=== PATIENT | male | born 1990 | race Two or more races ===

== ENCOUNTER 2017-05-02 20:46 | Emergency (ER) | payer OTHER ==
[2017-05-02 21:00] VITALS: BP 112/72
[2017-05-02 21:21] LABS: APPEARANCE,URINE CLOUDY; BILIRUBIN,URINE NEGATIVE (NEGATIVE); GLUCOSE, URINE NEGATIVE (NEGATIVE); KETONES,URINE NEGATIVE (NEGATIVE); LEUKOCYTE ESTERASE,URINE MODERATE (NEGATIVE); NITRITE,URINE NEGATIVE (NEGATIVE); PROTEIN,URINE 100 mg/dL (NEGATIVE); URINE SPECIFIC GRAVITY 1.018; UROBILINOGEN,URINE NEGATIVE mg/dL (<2.0)
[2017-05-02] MEDS ORDERED: CEFTRIAXONE INJ 1000 MG VIAL IM ONE (22:34)
[2017-05-02] MEDS ORDERED: LIDOCAINE 1% INJ-PF (10 MG/ML) 30 ML SDV INJ ONE (22:34)
[2017-05-02] MEDS ORDERED: AZITHROMYCIN 250 MG TABLET PO ONE (22:34)
[2017-05-02] MEDS ORDERED: HYDROCODONE/ACETAMINOPHEN 5-325 MG 6 TAB/DSPK PO PRN (22:37)
--- NOTE | 2017-05-02 22:38 | ER Document Report ---
ED GI/ - General Chief Complaint: Urinary Problem Stated Complaint: FEVER,BLOOD IN URINE Time Seen by Provider: 05/02/17 22:34 Notes: patient is a 26-year-old male who comes emergency department for chief complaint of hematuria, dysuria, urinary frequency, and also pain radiating around towards his right flank. He states earlier today before arrival he urinated and thinks he peed something out which he is not sure about. He states he actually feels a lot better now but he is still having frequency of urination and some discomfort with urination. He states he felt chills like a fever earlier. 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 He denies penis or scrotal pain, denies discharge, states he is sexually active with his . Denies personally history of kidney stones but they run in the family. TRAVEL OUTSIDE OF THE [place] IN LAST 30 DAYS: No Past Medical History - General Information source: Patient - Social History Smoking Status: Never Smoker Frequency of alcohol use: Occasional Drug Abuse: None Lives with: Spouse/Significant other Family History: Reviewed & Not Pertinent Patient has suicidal ideation: No Patient has homicidal ideation: No - Medical History Medical History: Negative Renal/ Medical History: Denies: Hx Peritoneal Dialysis Surgical Hx: Negative - Immunizations Immunizations up to date: Yes Hx Diphtheria, Pertussis, Tetanus Vaccination: Yes Review of Systems - Review of Systems Constitutional: No symptoms reported EENT: No symptoms reported Cardiovascular: No symptoms reported Respiratory: No symptoms reported Gastrointestinal: See HPI Genitourinary: See HPI Male Genitourinary: See HPI Musculoskeletal: No symptoms reported Skin: No symptoms reported Hematologic/Lymphatic: No symptoms reported Neurological/Psychological: No symptoms reported Physical Exam - Vital signs Vitals: Temp Pulse Resp BP Pulse Ox 99.5 F 75 16 112/72 100 05/02/17 20:57 05/02/17 20:57 05/02/17 20:57 05/02/17 20:57 05/02/17 20:57 Interpretation: Normal - General General appearance: Appears well, Alert In distress: None - HEENT Head: Normocephalic, Atraumatic Eyes: Normal Pupils: PERRL - Respiratory Respiratory status: No respiratory distress Chest status: Nontender Breath sounds: Normal Chest palpation: Normal - Cardiovascular Rhythm: Regular Heart sounds: Normal auscultation Murmur: No - Abdominal Inspection: Normal Distension: No distension Bowel sounds: Normal Tenderness: Nontender. No: Tender, Guarding - Back Back: Normal, Nontender. No: Tender, CVA tenderness - Extremities General upper extremity: Normal inspection, Nontender, Normal color, Normal ROM , Normal temperature General lower extremity: Normal inspection, Nontender, Normal color, Normal ROM , Normal temperature, Normal weight bearing. No: Amberly's sign - Neurological Neuro grossly intact: Yes Cognition: Normal Orientation: AAOx4 Sanborn Coma Scale Eye Opening: Spontaneous Emily Coma Scale Verbal: Oriented [place] Coma Scale Motor: Obeys Commands Sanborn Coma Scale Total: 15 Speech: Normal Motor strength normal: LUE, RUE, LLE, RLE Sensory: Normal - Psychological Associated symptoms: Normal affect, Normal mood - Skin Skin Temperature: Warm Skin Moisture: Dry Skin Color: Normal Course - Re-evaluation Re-evalutation: Patient is calm, well-appearing, sitting with no signs of distress. No tachycardia, fever, or abnormal vital signs. Patient's abdomen is completely benign, no CVA tenderness. By report patient sounds like he actually passed a kidney stone. Denies penile discharge. Patient states his only current symptoms of frequency and discomfort with urination. Urinalysis shows white blood cells and red blood cells. Patient will be treated with antibiotics, given a shot of Rocephin, also covered with azithromycin, will be started on Keflex. I did discuss performing a CAT scan to be sure that he does have an infected stone, patient declines, patient does not present as if he is currently passing a stone or has any obstructive pathology. I discussed return precautions including fever or any other concerning symptoms, patient states understanding and agreement - Vital Signs Vital signs: Temp Pulse Resp BP Pulse Ox 99.5 F 75 16 112/72 100 05/02/17 20:57 05/02/17 20:57 05/02/17 20:57 05/02/17 20:57 05/02/17 20:57 - Laboratory Laboratory results interpreted by me: 05/02/17 20:55 Urine Protein 100 H Urine Blood LARGE H Ur Leukocyte Esterase MODERATE H Discharge - Discharge Clinical Impression: Hematuria, Dysuria Condition: Stable Disposition: HOME, SELF-CARE Additional Instructions: Your symptoms, workup, and exam are most consistent with a kidney stone which you have now urinated out with a secondary infection. You have begun treatment, please complete treatment at home with the prescribed antibiotic. You have been given hydrocodone tonight. Please return immediately if you worsen in any way including returned pain, spiking fever, vomiting, or any other concerning symptoms. Prescriptions: Cephalexin Monohydrate [Keflex 500 mg Capsule] 500 mg PO BID #14 capsule
== END 2017-05-02 22:45 | disposition home or self-care (01) ==
LOC: ER 20:46
DX: R31.9 Hematuria, unspecified (principal); R30.0 Dysuria; R50.9 Fever, unspecified
CPT/HCPCS: 99283; 96372; 81001; J3490; J0696